=== PATIENT | male | born 1950 | race Hispanic/Latino ===

== ENCOUNTER 2022-01-01 09:53 | Emergency (ER) | payer OTHER ==
--- OUTSIDE RECORDS SUMMARY | 2022-01-01 10:00 | XMS REPORT | Continuity of Care Document ---
:[address] [facility] t Address [address] [place] [address] Care Team Providers Name Role Phone Sanchez Price Primary Care Physician FREDDIE PATEL Attending Clinician Unavailable Milagros Patel MD Attending Clinician Doctor Unassigned, Name Attending Clinician Unavailable Only, Test Attending Clinician Unavailable Pob, Lab Main Attending Clinician Unavailable Milagros PATEL Admitting Clinician Unavailable Milagros Patel MD Admitting Clinician Payers Payer Name Policy Type Policy Number Effective Date Expiration Date Milagros sargent Fylet [id number] 2020spring 00:00:00 [facility] [id number] 2018 COMPLETE 00:00:00 Problems This patient has no known problems. Allergies, Adverse Reactions, Alerts Allergy Allergy Status Severity Reaction(s) Onset Inactive Treating Comm ents Source Name Type Date Date Clinician PENICILL Drug Active Rash 2015-09 Univers INS Class 0-19 ity of 00:00: [place] [id number] Medical Branch Penicill Propensi Active Rash 2015-09 Univer s ins ty to 0-19 ity of adverse 00:00: [place] reaction Medical s Branch Social History Social Habit Start Date Stop Date Quantity Comments Source Exposure to Not sure University SARS-CoV-2 [facility] [place] [facility] (event) Branch Alcohol intake 2021-06-17 2021-06-17 0 /d University of 00:00:00 00:00:00 [facility] Tobacco Comment 2020-10-15 2020-10-15 half pack per Univer sity of 00:00:00 00:00:00 day [facility] Tobacco use and 2016-07-13 2016-07-13 Never used Universit y of exposure 00:00:00 00:00:00 [facility] Sex Assigned At [birth year] Universit y of 00:00:00 00:00:00 [facility] Smoking Status Start Date Stop Date Source Current every day smoker 2016-07-13 00:00:00 Uni versity of [facility] Medications Ordered Filled Start Stop Current Ordering Indication Dosage Frequency Signature Comments Components Source Medication Medication Date Date Medication? Clinician (SIG) Name Name triamcinolo 2020- No PRN, Unive rs ne 06-21 Starting ity of acetonide 16:10: 17:33 on Mon [place] (KENALOG) 00 :29 06/21/21 at [facility] injection 1110, Branch Until 06/21/21 at 1233, Routine, Intra-op lidocaine 2020- No PRN, Univers 1% 06-21 Starting ity of (XYLOCAINE) 16:10: 17:33 on Mon [place] 10 mg/mL (1 00 :29 06/21/21 at [facility] %) 1110, Branch injection Until 06/21/21 at 1233, Routine, Intra-op iohexoL 2020- No PRN, Univers (OMNIPAQUE 06-21 Starting ity of 300-50 mL)) 16:10: 17:33 on Mon [place] injection 00 :29 06/21/21 at [facility] 1110, Branch Until Mon06/21/21 at 1233, Routine, Intra-op bupivacaine 2020- No PRN, Unive rs (preserv 06-21 Starting ity of free) 16:10: 17:33 on Mon (SENSORCAIN 00 :29 06/21/21 at [facility] E MP[facility]) 0.25 1110, Branch % (2.5 Until Mon mg/mL) 06/21/21 at injection 1233, Routine, Intra-op lactated 2020- No 1000mL at 42 Unive rs ringers IV 06-21 mL/hr, ity of infusion 12:15: 12:12 1,000 mL, [place] 1,000 mL 00 :00 IV Medical Infusion, Branch ONCE, 1 dose, On Mon06/21/21 at 0715, Routine, DSU Pre-op lactated 2021-0 2021- No 1000mL at 42 Unive rs ringers IV 06-21 09-27 mL/hr, ity of infusion 12:15: 12:12 1,000 mL, [place] 1,000 mL 00 :00 IV Medical Infusion, Branch ONCE, 1 dose, On Mon06/21/21 at 0715, Routine, DSU Pre-op dapaglifloz 2021-0 Yes 10mg Take 10 mg Univers in 06-21 by mouth ity of (FARXIGA) 10:33: daily. [place] 10 mg 29 Medical tablet Branch dapaglifloz 1-0 Yes 10mg Take 10 mg Univers in 06-21 by mouth ity of (FARXIGA) 10:33: daily. [place] 10 mg 29 Medical tablet Branch dapaglifloz 1-0 Yes 10mg Take 10 mg Univers in 06-21 by mouth ity of (FARXIGA) 10:33: daily. [place] 10 mg 29 Medical tablet Branch lactated 2020-0 Yes 1000mL at 125 Unive rs ringers IV 9-13 mL/hr, ity of infusion 15:15: 1,000 mL, [place] 1[place]000 mL 00 IV Medical Infusion, Branch CONTINUOUS , Starting on Mon06/07/21 at 1015, Until Discontinu ed, Routine, Procedure Scheduling Request lactated 2020-0 Yes 1000mL at 125 Unive rs ringers IV 9-13 mL/hr, ity of infusion 15:15: 1,000 mL, [place] 1[place]000 mL 00 IV Medical Infusion, Branch CONTINUOUS , Starting on Mon06/07/21 at 1015, Until Discontinu ed, Routine, Procedure Scheduling Request lactated 1-0 1- No 1000mL at 125 Univ ers ringers IV 9-13 09-13 mL/hr, ity of infusion 15:15: 16:56 1,000 mL, [place] 1,000 mL 00 :28 IV Medical Infusion, Branch CONTINUOUS , Starting on Mon06/07/21 at 1015, Until Mon06/07/21 at 1156, Routine, Procedure Scheduling Request lactated 2021-0 2021- No 1000mL at 125 Univ ers ringers IV 06-07 09-13 mL/hr, ity of infusion 15:15: 16:56 1,000 mL, [place] 1,000 mL 00 :28 IV Medical Infusion, Branch CONTINUOUS , Starting on Mon06/07/21 at 1015, Until Mon06/07/21 at 1156, Routine, Procedure Scheduling Request triamcinolo 0 Yes PRN, Univer s ne 06-07 Starting ity of acetonide 13:53: on Mon (KENALOG) 06/07/21 at [facility] injection 0853, Branch Until Discontinu ed, Routine, Intra-op lidocaine 2020-0 Yes PRN, Univers 1% 06-07 Starting ity of (XYLOCAINE) 13:53: on [place] 10 mg/mL (06/07/21 at [facility] %) 0853, Branch injection Until Discontinu ed, Routine, Intra-op iohexoL 2020-0 Yes PRN, Univers (OMNIPAQUE 06-07 Starting ity o f 300-50 mL)) 13:53: on [place] injection 06/07/21 at [facility] 0853, Branch Until Discontinu ed, Routine, Intra-op bupivacaine 0 Yes PRN, Univer s (preserv 06-07 Starting ity of free) 13:53: on Mon [place] (SENSORCAIN 06/07/21 at [facility] E MPF) 0.25 0853, Branch % (2.5 Until mg/mL) Discontinu injection ed, Routine, Intra-op triamcinolo 0 Yes PRN, Univer s ne 06-07 Starting ity of acetonide 13:53: on Mon [place] (KENALOG) 06/07/21 at [facility] injection 0853, Branch Until Discontinu ed, Routine, Intra-op lidocaine 2020-0 Yes PRN, Univers 1% 06-07 Starting ity of (XYLOCAINE) 13:53: on [place] 10 mg/mL (06/07/21 at [facility] %) 0853, Branch injection Until Discontinu ed, Routine, Intra-op iohexoL 2020-0 Yes PRN, Univers (OMNIPAQUE 06-07 Starting ity o f 300-50 mL)) 13:53: on [place] 00 06/07/21 at [facility] 0853, Branch Until Discontinu ed, Routine, Intra-op bupivacaine Yes PRN, Univer s (preserv 06-07 Starting ity of free) 13:53: on [facility] (SENSORCAIN 00 06/07/21 at Va dical E MPF) 0.25 0853, Branch % (2.5 Until mg/mL) Discontinu injection ed, Routine, Intra-op triamcinolo 2020- No PRN, Unive rs ne 06-07 Starting ity of acetonide 13:53: 16:56 on [facility] (KENALOG) 00 :28 06/07/21 at [facility] injection 53, Branch Until Mon06/07/21 at 1156, Routine, Intra-op lidocaine 2020- No PRN, Univers 1% 06-07 Starting ity of (XYLOCAINE) 13:53: 16:[address] [facility] as 10 mg/mL (1 00 :28 06/07/21 at Va dical %) 0853, Branch injection Until Mon06/07/21 at 1156, Routine, Intra-op iohexoL 2020- No PRN, Univers (OMNIPAQUE 06-07 Starting ity of 300-50 mL)) 13:53: 16:56 on [facility] [place] injection 00 :28 06/07/21 at [facility] 08, Branch Until Mon06/07/21 at 1156, Routine, Intra-op bupivacaine 2020- No PRN, Unive rs (preserv 06-07 Starting ity of free) 13:53: 16:56 on [facility] (SENSORCAIN 00 :28 06/07/21 at Va dical E MPF) 0.25 0853, Branch % (2.5 Until Mon mg/mL) 06/07/21 at injection 1156, Routine, Intra-op triamcinolo 2020- No PRN, Unive rs ne 06-07 Starting ity of acetonide 13:53: 16:56 on [facility] (KENALOG) 00 :28 06/07/21 at [facility] injection 0853, Branch Until 06/07/21 at 1156, Routine, Intra-op lidocaine 2020-0 2020- No PRN, Univers 1% 06-07 Starting ity of (XYLOCAINE) 13:53: 16:56 on Mon [place] 10 mg/mL (1 00 :28 06/07/21 at Va dical %) 0853, Branch injection Until 06/07/21 at 1156, Routine, Intra-op iohexoL 2020- No PRN, Univers (OMNIPAQUE 06-07 Starting ity of 300-50 mL)) 13:53: 16:56 on Mon [place] injection 00 :28 06/07/21 at [facility] 0853, Branch Until Mon06/07/21 at 1156, Routine, Intra-op bupivacaine 2020-2020- No PRN, Unive rs (preserv 06-07 Starting ity of free) 13:53: 16:56 on Mon [place] (SENSORCAIN 00 :28 06/07/21 at [facility] E MPF) 0.25 53, Branch % (2.5 Until Mon mg/mL) 06/07/21 at injection 1156, Routine, Intra-op dapaglifloz 2020-0 Yes 10mg Take 10 mg Univers in - by mouth ity of (FARXIGA) 09:56: daily. [place] 10 mg 27 Medical tablet Branch dapaglifloz 2020-0 Yes 10mg Take 10 mg Univers in 06-07 by mouth ity of (FARXIGA) 09:56: daily. [place] 10 mg 27 Medical tablet Branch dapaglifloz 1-0 Yes 10mg Take 10 mg Univers in -13 by mouth ity of (FARXIGA) 09:56: daily. [place] 10 mg 27 Medical tablet Branch dapaglifloz 1-0 Yes 10mg Take 10 mg Univers in -13 by mouth ity of (FARXIGA) 09:56: daily. [place] 10 mg 27 Medical tablet Branch dapaglifloz 2021-0 Yes 10mg Take 10 mg Univers in 9-13 by mouth ity of (FARXIGA) 09:56: daily. [place] 10 mg 27 Medical tablet Branch dapaglifloz 2021-0 Yes 10mg Take 10 mg Univers in -13 by mouth ity of (FARXIGA) 09:56: daily. [place] 10 mg 27 Medical tablet Branch dapaglifloz 2020-0 Yes 10mg Take 10 mg Univers in 9-13 by mouth ity of (FARXIGA) 09:56: daily. [place] 10 mg 27 Medical tablet Branch dapaglifloz 2020-0 Yes 10mg Take 10 mg Univers in 9-13 by mouth ity of (FARXIGA) 09:56: daily. [place] 10 mg 27 Medical tablet Branch dapaglifloz 2020-0 Yes 10mg Take 10 mg Univers in 9-13 by mouth ity of (FARXIGA) 09:56: daily. [place] 10 mg 27 Medical tablet Branch dapaglifloz 2020-0 Yes 10mg Take 10 mg Univers in 9-13 by mouth ity of (FARXIGA) 09:56: daily. [place] 10 mg 27 Medical tablet Branch bupivacaine 2020-0 2020- No PRN, Unive rs (preserv 8 08-30 Starting ity of free) 15:05: 16:14 Mon [place] (SENSORCAIN 00 :20 05/24/21 at [facility] E MP[facility]) 0.25 1005, Branch % (2.5 Until Mon mg/mL) 05/24/21 at injection 1114, Routine, Intra-op bupivacaine 2020-0 2020- No PRN, Unive rs (preserv 8-30 08-30 Starting ity of free) 15:05: 16:14 Mon [place] (SENSORCAIN 00 :20 05/24/21 at [facility]ical E MPF) 0.25 1005, Branch % (2.5 Until Mon mg/mL) 05/24/21 at injection 1114, Routine, Intra-op dapaglifloz 2020-0 Yes 10mg Take 10 mg Univers in 8-30 by mouth ity of (FARXIGA) 14:09: daily. [place] 10 mg 16 Medical tablet Branch dapaglifloz 1-0 Yes 10mg Take 10 mg Univers in 8-30 by mouth ity of (FARXIGA) 14:09: daily. [place] 10 mg 16 Medical tablet Branch dapaglifloz 2020-0 Yes 10mg Take 10 mg Univers in 8-30 by mouth ity of (FARXIGA) 14:09: daily. [place] 10 mg 16 Medical tablet Branch dapaglifloz 2021-0 Yes 10mg Take 10 mg Univers in 8-30 by mouth ity of (FARXIGA) 14:09: daily. [place] 10 mg 16 Medical tablet Branch dapaglifloz 2021-0 Yes 10mg Take 10 mg Univers in 8-30 by mouth ity of (FARXIGA) 14:09: daily. [place] 10 mg 16 Medical tablet Branch dapaglifloz 2021-0 Yes 10mg Take 10 mg Univers in 8-30 by mouth ity of (FARXIGA) 14:09: daily. [place] 10 mg 16 Medical tablet Branch dapaglifloz 1-0 Yes 10mg Take 10 mg Univers in 8-30 by mouth ity of (FARXIGA) 14:09: daily. [place] 10 mg 16 Medical tablet Branch dapaglifloz 2021-0 Yes 10mg Take 10 mg Univers in 8-30 by mouth ity of (FARXIGA) 14:09: daily. [place] 10 mg 16 Medical tablet Branch dapaglifloz 2021-0 Yes 10mg Take 10 mg Univers in 8-30 by mouth ity of (FARXIGA) 14:09: daily. [place] 10 mg 16 Medical tablet Branch dapaglifloz 1-0 Yes 10mg Take 10 mg Univers in 8-30 by mouth ity of (FARXIGA) 14:09: daily. [place] 10 mg 16 Medical tablet Branch iohexoL 2020-2020- No PRN, Univers (OMNIPAQUE 8-30 08-30 Starting ity of 300-50 mL)) 13:00: 16:14 Mon [place] injection 00 :20 05/24/21 at [facility] 0800, Branch Until 05/24/21 at 1114, Routine, Intra-op iohexoL 2020- No PRN, Univers (OMNIPAQUE 8-30 08-30 Starting ity of 300-50 mL)) 13:00: 16:14 Mon [place] injection 00 :20 05/24/21 at [facility] 0800, Branch Until 05/24/21 at 1114, Routine, Intra-op triamcinolo 2020- No PRN, Unive rs ne 8-30 08-30 Starting ity of acetonide 12:49: 16:14 [facility] [place] (KENALOG) 00 :20 05/24/21 at [facility] injection 0749, Branch Until 8/30/21 at 1114, Routine, Intra-op triamcinolo 2020- No PRN, Unive rs ne 05-2430 Starting ity of acetonide 12:49: 16:14 Mon [place] (KENALOG) 00 :20 05/24/21 at [facility] injection 0749, Branch Until 05/24/21 at 1114, Routine, Intra-op lactated 2020- No 1000mL at 42 Unive rs ringers IV 8-30 08-30 mL/hr, ity of infusion 12:45: 12:41 1,000 mL, [place] 1,000 mL 00 :00 IV Medical Infusion, Branch ONCE, 1 dose, Mon05/24/21 at 0745, Routine, DSU Pre-op lactated 2020- No [facility] 08-30 mL/hr, ity of infusion 12:45: 12:41 1,000 mL, [place] 1,000 mL 00 :00 IV Medical Infusion, Branch ONCE, 1 dose, 05/24/21 at 0745, Routine, DSU Pre-op lactated 2020- No 1000mL at 42 Unive rs ringers IV 8-30 08-30 mL/hr, ity of infusion 12:45: 12:41 1,000 mL, [place] 1,000 mL 00 :00 IV Medical Infusion, Branch ONCE, 1 dose, Mon05/24/21 at 0745, Routine, DSU Pre-op lactated 2020- No 1000mL at 42 Unive rs ringers IV 8-30 08-30 mL/hr, ity of infusion 12:45: 12:41 1,000 mL, [place] 1,000 mL 00 :00 IV Medical Infusion, Branch ONCE, 1 dose, Mon05/24/21 at 0745, Routine, DSU Pre-op dapaglifloz Yes 10mg Take 10 mg Univers in 10-15 by mouth ity of (FARXIGA) 17:36: daily. [place] 10 mg 44 Medical tablet [place] dapaglifloz Yes 10mg Take 10 mg Univers in 10-15 by mouth ity of (FARXIGA) 17:36: daily. [place] 10 mg 44 Medical tablet Branch dapaglifloz 2020-0 Yes 10mg Take 10 mg Univers in 10-15 by mouth ity of (FARXIGA) 17:36: daily. [place] 10 mg 44 Medical tablet Branch dapaglifloz 2020-0 Yes 10mg Take 10 mg Univers in - by mouth ity of (FARXIGA) 17:36: daily. [place] 10 mg 44 Medical tablet Branch diclofenac 2017-0 Yes 75mg Take 1 Unive rs 75 mg EC 6-28 tablet by ity of tablet 00:00: mouth (two) Medical times Branch daily with meals. diclofenac 2017-0 Yes 75mg Take 1 Unive rs 75 mg EC 6-28 tablet by ity of tablet 00:00: mouth (two) Medical times Branch daily with meals. diclofenac 2017-0 Yes 75mg Take 1 Unive rs 75 mg EC 6-28 tablet by ity of tablet 00:00: mouth (two) Medical times Branch daily with meals. diclofenac 2017-0 Yes 75mg Take 1 Unive rs 75 mg EC 6-28 tablet by ity of tablet 00:00: mouth (two) Medical times Branch daily with meals. diclofenac 2017-0 Yes 75mg Take 1 Unive rs 75 mg EC 6-28 tablet by ity of tablet 00:00: mouth (two) Medical times Branch daily with meals. diclofenac 2017-0 Yes 75mg Take 1 Unive rs 75 mg EC 6-28 tablet by ity of tablet 00:00: mouth (two) Medical times Branch daily with meals. diclofenac 2017-0 Yes 75mg Take 1 Unive rs 75 mg EC 6-28 tablet by ity of tablet 00:00: mouth (two) Medical times Branch daily with meals. diclofenac 2017-0 Yes 75mg Take 1 Unive rs 75 mg EC 6-28 tablet by ity of tablet 00:00: mouth (two) Medical times Branch daily with meals. diclofenac 2017-0 Yes 75mg Take 1 Unive rs 75 mg EC 6-28 tablet by ity of tablet 00:00: mouth 2 (two) Medical times Branch daily with meals. diclofenac 2017-0 Yes 75mg Take 1 Unive rs 75 mg EC 6-28 tablet by ity of tablet 00:00: mouth 2 (two) Medical times Branch daily with meals. diclofenac 2017-0 Yes 75mg Take 1 Unive rs 75 mg EC 6-28 tablet by ity of tablet 00:00: mouth (two) Medical times Branch daily with meals. diclofenac 2017-0 Yes 75mg Take 1 Unive rs 75 mg EC 6-28 tablet by ity of tablet 00:00: mouth (two) Medical times Branch daily with meals. diclofenac 2017-0 Yes 75mg Take 1 Unive rs 75 mg EC 6-28 tablet by ity of tablet 00:00: mouth (two) Medical times Branch daily with meals. diclofenac 2017-0 Yes 75mg Take 1 Unive rs 75 mg EC 6-28 tablet by ity of tablet 00:00: mouth (two) Medical times Branch daily with meals. diclofenac 2017-0 Yes 75mg Take 1 Unive rs 75 mg EC 6-28 tablet by ity of tablet 00:00: mouth (two) Medical times Branch daily with meals. diclofenac 2017-0 Yes 75mg Take 1 Unive rs 75 mg EC 6-28 tablet by ity of tablet 00:00: mouth (two) Medical times Branch daily with meals. diclofenac 2017-0 Yes 75mg Take 1 Unive rs 75 mg EC 6-28 tablet by ity of tablet 00:00: mouth (two) Medical times Branch daily with meals. diclofenac 2017-0 Yes 75mg Take 1 Unive rs 75 mg EC 6-28 tablet by ity of tablet 00:00: mouth (two) Medical times Branch daily with meals. diclofenac 2017-0 Yes 75mg Take 1 Unive rs 75 mg EC 6-28 tablet by ity of tablet 00:00: mouth (two) Medical times Branch daily with meals. diclofenac 2017-0 Yes 75mg Take 1 Unive rs 75 mg EC 6-28 tablet by ity of tablet 00:00: mouth (two) Medical times Branch daily with meals. diclofenac 2017-0 Yes 75mg Take 1 Unive rs 75 mg EC 6-28 tablet by ity of tablet 00:00: mouth (two) Medical times Branch daily with meals. diclofenac 2017-0 Yes 75mg Take 1 Unive rs 75 mg EC 6-28 tablet by ity of tablet 00:00: mouth (two) Medical times Branch daily with meals. diclofenac 2017-0 Yes 75mg Take 1 Unive rs 75 mg EC 6-28 tablet by ity of tablet 00:00: mouth 2 (two) Medical times Branch daily with meals. diclofenac 2017-0 Yes 75mg Take 1 Unive rs 75 mg EC 6-28 tablet by ity of tablet 00:00: mouth 2 (two) Medical times Branch daily with meals. diclofenac 2017-0 Yes 75mg Take 1 Unive rs 75 mg EC 6-28 tablet by ity of tablet 00:00: mouth 2 (two) Medical times Branch daily with meals. diclofenac 2017-0 Yes 75mg Take 1 Unive rs 75 mg EC 6-28 tablet by ity of tablet 00:00: mouth 2 (two) Medical times Branch daily with meals. diclofenac 2017-0 Yes 75mg Take 1 Unive rs 75 mg EC 6-28 tablet by ity of tablet 00:00: mouth (two) Medical times Branch daily with meals. diclofenac 2017-0 Yes 75mg Take 1 Unive rs 75 mg EC 6-28 tablet by ity of tablet 00:00: mouth (two) Medical times Branch daily with meals. EPINEPHrine 2017-0 Yes Univer s 0.3 mg/0.3 6-01 ity of mL 00:00: [place] injection Medical Branch EPINEPHrine 2017-0 Yes Univer s 0.3 mg/0.3 6-01 ity of mL 00:00: [place] injection Medical Branch EPINEPHrine 2017-0 Yes Univer s 0.3 mg/0.3 6-01 ity of mL 00:00: [place] injection Medical Branch EPINEPHrine 2017-0 Yes Univer s 0.3 mg/0.3 6-01 ity of mL 00:00: [place] injection Medical Branch EPINEPHrine 2017-0 Yes Univer s 0.3 mg/0.3 6-01 ity of mL 00:00: [place] injection Medical Branch EPINEPHrine 2017-0 Yes Univer s 0.3 mg/0.3 6-01 ity of mL 00:00: [place] injection Medical Branch EPINEPHrine 2017-0 Yes Univer s 0.3 mg/0.3 6-01 ity of mL 00:00: [place] injection Medical Branch EPINEPHrine 2017-0 Yes Univer s 0.3 mg/0.3 6-01 ity of mL 00:00: [place] injection Medical Branch EPINEPHrine 2017-0 Yes Univer s 0.3 mg/0.3 6-01 ity of mL 00:00: [place] injection Medical Branch EPINEPHrine 2017-0 Yes Univer s 0.3 mg/0.3 6-01 ity of mL 00:00: [place] injection Medical Branch EPINEPHrine 2017-0 Yes Univer s 0.3 mg/0.3 6-01 ity of mL 00:00: [place] injection Medical Branch EPINEPHrine 2017-0 Yes Univer s 0.3 mg/0.3 6-01 ity of mL 00:00: [place] injection Medical Branch EPINEPHrine 2017-0 Yes Univer s 0.3 mg/0.3 6-01 ity of mL 00:00: [place] injection Medical Branch EPINEPHrine 2016-0 Yes Univer s 0.3 mg/0.3 6-01 ity of mL 00:00: [place] injection Medical Branch EPINEPHrine 2017-0 Yes Univer s 0.3 mg/0.3 6-01 ity of mL 00:00: [place] injection Medical Branch EPINEPHrine 2017-0 Yes Univer s 0.3 mg/0.3 6-01 ity of mL 00:00: [place] injection Medical Branch EPINEPHrine 2017-0 Yes Univer s 0.3 mg/0.3 6-01 ity of mL 00:00: [place] injection Medical Branch EPINEPHrine 2017-0 Yes Univer s 0.3 mg/0.3 6-01 ity of mL 00:00: [place] injection Medical Branch EPINEPHrine 2017-0 Yes Univer s 0.3 mg/0.3 6-01 ity of mL 00:00: [place] injection Medical Branch EPINEPHrine 2017-0 Yes Univer s 0.3 mg/0.3 6-01 ity of mL 00:00: [place] injection Medical Branch EPINEPHrine 2017-0 Yes Univer s 0.3 mg/0.3 6-01 ity of mL 00:00: [place] injection Medical Branch EPINEPHrine 2017-0 Yes Univer s 0.3 mg/0.3 6-01 ity of mL 00:00: [place] injection Medical Branch EPINEPHrine 2017-0 Yes Univer s 0.3 mg/0.3 6-01 ity of mL 00:00: [place] injection 00 Medical Branch EPINEPHrine 2017-0 Yes Univer s 0.3 mg/0.3 6-01 ity of mL 00:00: [place] injection Medical Branch EPINEPHrine 2017-0 Yes Univer s 0.3 mg/0.3 6-01 ity of mL 00:00: [place] injection Medical Branch EPINEPHrine 2017-0 Yes Univer s 0.3 mg/0.3 6-01 ity of mL 00:00: [place] injection Medical Branch EPINEPHrine 2017-0 Yes Univer s 0.3 mg/0.3 6-01 ity of mL 00:00: [place] injection Medical Branch EPINEPHrine 2017-0 Yes Univer s 0.3 mg/0.3 6-01 ity of mL 00:00: [place] injection Medical Branch gabapentin 2017-0 Yes Univers 300 mg 5-31 ity of capsule 00:00: [place] [facility] gabapentin 2017-0 Yes Univers 300 mg 5-31 ity of capsule 00:00: [place] [facility] gabapentin 2017-0 Yes Univers 300 mg 5-31 ity of capsule 00:00: [place] [facility] gabapentin 2017-0 Yes Univers 300 mg 5-31 ity of capsule 00:00: [place] [facility] gabapentin 2017-0 Yes Univers 300 mg 5-31 ity of capsule 00:00: [place] [address] Medical Branch gabapentin 2017-0 Yes Univers 300 mg 5-31 ity of capsule 00:00: [place] [address] Medical Branch gabapentin 2017-0 Yes Univers 300 mg 5-31 ity of capsule 00:00: [place] [address] Medical Branch gabapentin 2017-0 Yes Univers 300 mg 5-31 ity of capsule 00:00: [place] [facility] gabapentin 2017-0 Yes Univers 300 mg 5-31 ity of capsule 00:00: [place] [address] Medical Branch gabapentin 2017-0 Yes Univers 300 mg 5-31 ity of capsule 00:00: [place] [address] Medical Branch gabapentin 2017-0 Yes Univers 300 mg 5-31 ity of capsule 00:00: [place] [facility] gabapentin 2017-0 Yes Univers 300 mg 5-31 ity of capsule 00:00: [place] [address] Medical Branch gabapentin 2017-0 Yes Univers 300 mg 5-31 ity of capsule 00:00: [place] [address] Medical Branch gabapentin 2017-0 Yes Univers 300 mg 5-31 ity of capsule 00:00: [place] [facility] gabapentin 2017-0 Yes Univers 300 mg 5-31 ity of capsule 00:00: [place] 00 Medical Branch gabapentin 2017-0 Yes Univers 300 mg 5-31 ity of capsule 00:00: [place] 00 Medical Branch gabapentin 2017-0 Yes Univers 300 mg 5-31 ity of capsule 00:00: [place] [address] Medical Branch gabapentin 2017-0 Yes Univers 300 mg 5-31 ity of capsule 00:00: [place] [address] Medical Branch gabapentin 2017-0 Yes Univers 300 mg 5-31 ity of capsule 00:00: [place] [address] Medical Branch gabapentin 2017-0 Yes Univers 300 mg 5-31 ity of capsule 00:00: [place] [address] Medical Branch gabapentin 2017-0 Yes Univers 300 mg 5-31 ity of capsule 00:00: [place] [address] Medical Branch gabapentin 2017-0 Yes Univers 300 mg 5-31 ity of capsule 00:00: [place] [address] Medical Branch gabapentin 2017-0 Yes Univers 300 mg 5-31 ity of capsule 00:00: [place] [address] Medical Branch gabapentin 2017-0 Yes Univers 300 mg 5-31 ity of capsule 00:00: [place] [address] Medical Branch gabapentin 2017-0 Yes Univers 300 mg 5-31 ity of capsule 00:00: [place] [address] Medical Branch gabapentin 2017-0 Yes Univers 300 mg 5-31 ity of capsule 00:00: [place] [address] Medical Branch gabapentin 2017-0 Yes Univers 300 mg 5-31 ity of capsule 00:00: [place] [address] Medical Branch gabapentin 2017-0 Yes Univers 300 mg 5-31 ity of capsule 00:00: [place] [address] Medical Branch pravastatin 2017-0 Yes Univer s 40 mg 5-08 ity of tablet 00:00: [place] [address] Medical Branch pravastatin 2017-0 Yes Univer s 40 mg 5-08 ity of tablet 00:00: [place] 00 Medical Branch pravastatin 2017-0 Yes Univer s 40 mg 5-08 ity of tablet 00:00: [place] [address] Medical Branch pravastatin 2017-0 Yes Univer s 40 mg 5-08 ity of tablet 00:00: [place] [address] Medical Branch pravastatin 2017-0 Yes Univer s 40 mg 5-08 ity of tablet 00:00: [place] [address] Medical Branch pravastatin 2017-0 Yes Univer s 40 mg 5-08 ity of tablet 00:00: [place] [address] Medical Branch pravastatin 2017-0 Yes Univer s 40 mg 5-08 ity of tablet 00:00: [place] [address] Medical Branch pravastatin 2017-0 Yes Univer s 40 mg 5-08 ity of tablet 00:00: [place] [address] Medical Branch pravastatin 2017-0 Yes Univer s 40 mg 5-08 ity of tablet 00:00: [address] Branch pravastatin 2017-0 Yes Univer s 40 mg 5-08 ity of tablet 00:00: [place] [address] Medical Branch pravastatin 2017-0 Yes Univer s 40 mg 5-08 ity of tablet 00:00: [address] Branch pravastatin 2017-0 Yes [facility] s 40 mg 5-08 ity of tablet 00:00: [address] Branch pravastatin 2017-0 Yes [facility] 40 mg 5-08 ity of tablet 00:00: [address] Branch pravastatin 2017-0 Yes [facility] 40 mg 5-08 ity of tablet 00:00: [address] Branch pravastatin 2017-0 Yes [facility] 40 mg 5-08 ity of tablet 00:00: [address] Branch pravastatin 2017-0 Yes [facility] 40 mg 5-08 ity of tablet 00:00: [address] Branch pravastatin 2017-0 Yes [facility] 40 mg 5-08 ity of tablet 00:00: [address] Branch pravastatin 2017-0 Yes [facility] 40 mg 5-08 ity of tablet 00:00: [address] pravastatin 2017-0 Yes [facility] 40 mg 5-08 ity of tablet 00:00: [address] Branch pravastatin 2017-0 Yes [facility] 40 mg 5-08 ity of tablet 00:00: [address] Branch pravastatin 2017-0 Yes [facility] 40 mg 5-08 ity of tablet 00:00: [address] [facility] pravastatin 2017-0 Yes [facility] 40 mg 5-08 ity of tablet 00:00: [address] [facility] pravastatin 2017-0 Yes [facility] 40 mg 5-08 ity of tablet 00:00: [address] pravastatin 2017-0 Yes [facility] 40 mg 5-08 ity of tablet 00:00: [address] [facility] pravastatin 2017-0 Yes Un[facility] 40 mg 5-08 ity of tablet 00:00: [place] [id number] [facility] pravastatin 2017-0 Yes Un[facility] s 40 mg 5-08 ity of tablet 00:00: [address] Branch pravastatin 2017-0 Yes [facility] 40 mg 5-08 ity of tablet 00:00: [place] [facility] pravastatin 2017-0 Yes [facility] 40 mg 5-08 ity of tablet 00:00: [place] 00 [facility] lisinopril 2015-09 Yes [facility] (PRINIVIL,Z 0-12 ity of ESTRIL) 5 00:00: [place] mg tablet 00 [facility] metFORMIN 2015-09 Yes [facility] (GLUCOPHAGE 0-12 ity of ) 500 mg 00:00: [place] tablet 00 [facility] nortriptyli 2015-09 Yes Univer s ne 0-12 ity of (PAMELOR) 00:00: [place] 10 mg 00 Medical capsule Branch lisinopril 2015-09 Yes [facility] (PRINIVIL,Z 0-12 ity of ESTRIL) 5 00:00: [place] mg tablet 00 [facility] metFORMIN 2015-09 Yes [facility] (GLUCOPHAGE 0-12 ity of ) 500 mg 00:00: [place] tablet 00 [facility] nortriptyli 2015-09 Yes Un[facility] s ne 0-12 ity of (PAMELOR) 00:00: [place] 10 mg 00 Medical capsule Branch lisinopril 2015-09 Yes [facility] (PRINIVIL,Z 0-12 ity of ESTRIL) 5 00:00: [place] mg tablet 00 [facility] lisinopril 2015-09 Yes [facility] (PRINIVIL,Z 0-12 ity of ESTRIL) 5 00:00: [place] mg tablet 00 [facility] metFORMIN 2015-09 Yes Univers (GLUCOPHAGE 0-12 ity of ) 500 mg 00:00: [place] tablet 00 [facility] nortriptyli 2015-09 Yes Un[facility] s ne 0-12 ity of (PAMELOR) 00:00: [place] 10 mg 00 Medical capsule Branch metFORMIN 2015-09 Yes [facility] (GLUCOPHAGE 0-12 ity of ) 500 mg 00:00: [place] tablet 00 [facility] nortriptyli 2015-09 Yes Un[facility] s ne 0-12 ity of (PAMELOR) 00:00: [place] 10 mg 00 Medical capsule Branch lisinopril 2015-09 Yes [facility] (PRINIVIL,Z 0-12 ity of ESTRIL) 5 00:00: [place] mg tablet 00 [facility] metFORMIN 2015-09 Yes Univers (GLUCOPHAGE 0-12 ity of ) 500 mg 00:00: [place] tablet 00 [facility] nortriptyli 2015-09 Yes Un[facility] s ne 0-12 ity of (PAMELOR) 00:00: [place] 10 mg 00 Medical capsule Branch lisinopril 2015-09 Yes [facility] (PRINIVIL,Z 0-12 ity of ESTRIL) 5 00:00: [place] mg tablet 00 [facility] metFORMIN 2015-09 Yes [facility] (GLUCOPHAGE 0-12 ity of ) 500 mg 00:00: [place] tablet 00 [facility] nortriptyli 2015-09 Yes Un[facility] s ne 0-12 ity of (PAMELOR) 00:00: [place] 10 mg 00 Medical capsule Branch lisinopril 2015-09 Yes [facility] (PRINIVIL,Z 0-12 ity of ESTRIL) 5 00:00: [place] mg tablet 00 [facility] metFORMIN 2015-09 Yes Univers (GLUCOPHAGE 0-12 ity of ) 500 mg 00:00: [place] tablet 00 [facility] nortriptyli 2015-09 Yes Un[facility] s ne 0-12 ity of (PAMELOR) 00:00: [place] 10 mg 00 Medical capsule Branch lisinopril 2015-09 Yes [facility] (PRINIVIL,Z 0-12 ity of ESTRIL) 5 00:00: [place] mg tablet 00 [facility] metFORMIN 2015-09 Yes [facility] (GLUCOPHAGE 0-12 ity of ) 500 mg 00:00: [place] tablet 00 [facility] nortriptyli 2015-09 Yes Un[facility] s ne 0-12 ity of (PAMELOR) 00:00: [place] 10 mg 00 Medical capsule Branch lisinopril 2015-09 Yes [facility] (PRINIVIL,Z 0-12 ity of ESTRIL) 5 00:00: [place] mg tablet 00 [facility] metFORMIN 2015-09 Yes [facility] (GLUCOPHAGE 0-12 ity of ) 500 mg 00:00: [place] tablet 00 [facility] nortriptyli 2015-09 Yes Un[facility] s ne 0-12 ity of (PAMELOR) 00:00: [place] 10 mg 00 Medical capsule Branch lisinopril 2015-09 Yes [facility] (PRINIVIL,Z 0-12 ity of ESTRIL) 5 00:00: [place] mg tablet 00 [facility] metFORMIN 2015-09 Yes Univers (GLUCOPHAGE 0-12 ity of ) 500 mg 00:00: [place] tablet 00 [facility] nortriptyli 2015-09 Yes Un[facility] s ne 0-12 ity of (PAMELOR) 00:00: [place] 10 mg 00 Medical capsule Branch lisinopril 2015-09 Yes [facility] (PRINIVIL,Z 0-12 ity of ESTRIL) 5 00:00: [place] mg tablet 00 [facility] metFORMIN 2015-09 Yes [facility] (GLUCOPHAGE 0-12 ity of ) 500 mg 00:00: [place] tablet 00 [facility] nortriptyli 2015-09 Yes [facility] ne 0-12 ity of (PAMELOR) 00:00: [place] 10 mg 00 Medical capsule Branch lisinopril 2015-09 Yes [facility] (PRINIVIL,Z 0-12 ity of ESTRIL) 5 00:00: [place] mg tablet 00 [facility] metFORMIN 2015-09 Yes Univers (GLUCOPHAGE 0-12 ity of ) 500 mg 00:00: [place] tablet 00 [facility] nortriptyli 2015-09 Yes Un[facility] s ne 0-12 ity of (PAMELOR) 00:00: [place] 10 mg 00 Medical capsule Branch lisinopril 2015-09 Yes [facility] (PRINIVIL,Z 0-12 ity of ESTRIL) 5 00:00: [place] mg tablet 00 [facility] metFORMIN 2015-09 Yes [facility] (GLUCOPHAGE 0-12 ity of ) 500 mg 00:00: [place] tablet 00 [facility] nortriptyli 2015-09 Yes [facility] ne 0-12 ity of (PAMELOR) 00:00: [place] 10 mg 00 Medical capsule Branch lisinopril 2015-09 Yes [facility] (PRINIVIL,Z 0-12 ity of ESTRIL) 5 00:00: [place] mg tablet 00 [facility] metFORMIN 2015-09 Yes [facility] (GLUCOPHAGE 0-12 ity of ) 500 mg 00:00: [place] tablet 00 [facility] nortriptyli 2015-09 Yes [facility] ne 0-12 ity of (PAMELOR) 00:00: [place] 10 mg 00 Medical capsule Branch lisinopril 2015-09 Yes [facility] (PRINIVIL,Z 0-12 ity of ESTRIL) 5 00:00: [place] mg tablet 00 [facility] metFORMIN 2015-09 Yes [facility] (GLUCOPHAGE 0-12 ity of ) 500 mg 00:00: [place] tablet 00 [facility] nortriptyli 2015-09 Yes [facility] ne 0-12 ity of (PAMELOR) 00:00: [place] 10 mg 00 Medical capsule Branch lisinopril 2015-09 Yes [facility] (PRINIVIL,Z 0-12 ity of ESTRIL) 5 00:00: [place] mg tablet 00 [facility] metFORMIN 2015-09 Yes [facility] (GLUCOPHAGE 0-12 ity of ) 500 mg 00:00: [place] tablet 00 [facility] nortriptyli 2015-09 Yes [facility] ne 0-12 ity of (PAMELOR) 00:00: [place] 10 mg 00 Medical capsule Branch lisinopril 2015-09 Yes [facility] (PRINIVIL,Z 0-12 ity of ESTRIL) 5 00:00: [place] mg tablet 00 [facility] metFORMIN 2015-09 Yes [facility] (GLUCOPHAGE 0-12 ity of ) 500 mg 00:00: [place] tablet 00 [facility] nortriptyli 2015-09 Yes [facility] ne 0-12 ity of (PAMELOR) 00:00: [place] 10 mg 00 Medical capsule Branch lisinopril 2015-09 Yes [facility] (PRINIVIL,Z 0-12 ity of ESTRIL) 5 00:00: [place] mg tablet 00 [facility] metFORMIN 2015-09 Yes [facility] (GLUCOPHAGE 0-12 ity of ) 500 mg 00:00: [place] tablet 00 [facility] nortriptyli 2015-09 Yes [facility] ne 0-12 ity of (PAMELOR) 00:00: [place] 10 mg 00 Medical capsule Branch lisinopril 2015-09 Yes [facility] (PRINIVIL,Z 0-12 ity of ESTRIL) 5 00:00: [place] mg tablet 00 [facility] metFORMIN 2015-09 Yes [facility] (GLUCOPHAGE 0-12 ity of ) 500 mg 00:00: [place] tablet 00 [facility] nortriptyli 2015-09 Yes Un[facility] ne 0-12 ity of (PAMELOR) 00:00: [place] 10 mg 00 Medical capsule Branch lisinopril 2015-09 Yes [facility] (PRINIVIL,Z 0-12 ity of ESTRIL) 5 00:00: [place] mg tablet 00 [facility] metFORMIN 2015-09 Yes [facility] (GLUCOPHAGE 0-12 ity of ) 500 mg 00:00: [place] tablet 00 [facility] nortriptyli 2015-09 Yes Un[facility] ne 0-12 ity of (PAMELOR) 00:00: [place] 10 mg 00 Medical capsule Branch lisinopril 2015-09 Yes [facility] (PRINIVIL,Z 0-12 ity of ESTRIL) 5 00:00: [place] mg tablet 00 [facility] lisinopril 2015-09 Yes [facility] (PRINIVIL,Z 0-12 ity of ESTRIL) 5 00:00: [place] mg tablet 00 [facility] metFORMIN 2015-09 Yes [facility] (GLUCOPHAGE 0-12 ity of ) 500 mg 00:00: [place] tablet 00 [facility] nortriptyli 2015-09 Yes [facility] ne 0-12 ity of (PAMELOR) 00:00: [place] 10 mg 00 Medical capsule Branch metFORMIN 2015-09 Yes [facility] (GLUCOPHAGE 0-12 ity of ) 500 mg 00:00: [place] tablet 00 [facility] lisinopril 2015-09 Yes [facility] (PRINIVIL,Z 0-12 ity of ESTRIL) 5 00:00: [place] mg tablet 00 [facility] metFORMIN 2015-09 Yes [facility] (GLUCOPHAGE 0-12 ity of ) 500 mg 00:00: [place] tablet 00 [facility] nortriptyli 2015-09 Yes Un[facility] s ne 0-12 ity of (PAMELOR) 00:00: [place] 10 mg 00 Medical capsule Branch nortriptyli 2015-09 Yes [facility] ne 0-12 ity of (PAMELOR) 00:00: [place] 10 mg 00 Medical capsule Branch lisinopril 2015-09 Yes [facility] (PRINIVIL,Z 0-12 ity of ESTRIL) 5 00:00: [place] mg tablet 00 [facility] Branch metFORMIN 2015-09 Yes [facility] (GLUCOPHAGE 0-12 ity of ) 500 mg 00:00: [place] tablet 00 [facility] nortriptyli 2015-09 Yes Un[facility] ne 0-12 ity of (PAMELOR) 00:00: [place] 10 mg 00 Medical capsule Branch lisinopril 2015-09 Yes [facility] (PRINIVIL,Z 0-12 ity of ESTRIL) 5 00:00: [place] mg tablet 00 [facility] metFORMIN 2015-09 Yes [facility] (GLUCOPHAGE 0-12 ity of ) 500 mg 00:00: [place] tablet 00 [facility] nortriptyli 2015-09 Yes [facility] ne 0-12 ity of (PAMELOR) 00:00: [place] 10 mg 00 Medical capsule Branch lisinopril 2015-09 Yes [facility] (PRINIVIL,Z 0-12 ity of ESTRIL) 5 00:00: [place] mg tablet 00 [facility] metFORMIN 2015-09 Yes [facility] (GLUCOPHAGE 0-12 ity of ) 500 mg 00:00: [place] tablet 00 [facility] nortriptyli 2015-09 Yes [facility] s ne 0-12 ity of (PAMELOR) 00:00: [place] 10 mg 00 Medical capsule Branch lisinopril 2015-09 Yes [facility] (PRINIVIL,Z 0-12 ity of ESTRIL) 5 00:00: [place] mg tablet 00 Medical [facility] metFORMIN 2015-09 Yes [facility] (GLUCOPHAGE 0-12 ity of ) 500 mg 00:00: [place] tablet 00 [facility] nortriptyli 2015-09 Yes [facility] s ne 0-12 ity of (PAMELOR) 00:00: [place] 10 mg 00 Medical capsule Branch lisinopril 2015-09 Yes [facility] (PRINIVIL,Z 0-12 ity of ESTRIL) 5 00:00: [place] mg tablet 00 Medical Branch metFORMIN 2015-09 Yes [facility] (GLUCOPHAGE 0-12 ity of ) 500 mg 00:00: [place] tablet 00 Medical Branch nortriptyli 2015-09 Yes [facility] s ne 0-12 ity of (PAMELOR) 00:00: [place] 10 mg 00 Medical capsule Branch HYDROcodone 20160 Yes Univer s -acetaminop 9-23 ity of hen (NORCO) 00:00: [place] 10-325 mg 00 Medical tablet Branch LEVEMIR 2016-0 Yes [facility] FLEXTOUCH 9-23 ity of 100 unit/mL 00:00: [place] (3 mL) 00 Medical injection Branch HYDROcodone 2016-0 Yes Un[facility] s -acetaminop 9-23 ity of hen (NORCO) 00:00: [place] 10-325 mg 00 Medical tablet Branch HYDROcodone 2016-0 Yes Un[facility] s -acetaminop 9-23 ity of hen (NORCO) 00:00: [place] 10-325 mg 00 Medical tablet Branch LEVEMIR 2016-0 Yes [facility] FLEXTOUCH 9-23 ity of 100 unit/mL 00:00: [place] (3 mL) 00 Medical injection Branch LEVEMIR 2016-0 Yes [facility] FLEXTOUCH 9-23 ity of 100 unit/mL 00:00: [place] (3 mL) 00 Medical injection Branch HYDROcodone 2016-0 Yes Un[facility] s -acetaminop 9-23 ity of hen (NORCO) 00:00: [place] 10-325 mg 00 Medical tablet Branch LEVEMIR 2016-0 Yes [facility] FLEXTOUCH 9-23 ity of 100 unit/mL 00:00: [place] (3 mL) 00 Medical injection Branch HYDROcodone 2016-0 Yes Un[facility] s -acetaminop 9-23 ity of hen (NORCO) 00:00: [place] 10-325 mg 00 Medical tablet Branch LEVEMIR 2016-0 Yes [facility] FLEXTOUCH 9-23 ity of 100 unit/mL 00:00: [place] (3 mL) 00 Medical injection Branch HYDROcodone 2016-0 Yes Un[facility] s -acetaminop 9-23 ity of hen (NORCO) 00:00: [place] 10-325 mg 00 Medical tablet Branch LEVEMIR 2016-0 Yes [facility] FLEXTOUCH 9-23 ity of 100 unit/mL 00:00: [place] (3 mL) 00 Medical injection Branch HYDROcodone 2016-0 Yes Un[facility] s -acetaminop 9-23 ity of hen (NORCO) 00:00: [place] 10-325 mg 00 Medical tablet Branch LEVEMIR 2016-0 Yes [facility] FLEXTOUCH 9-23 ity of 100 unit/mL 00:00: [place] (3 mL) 00 Medical injection Branch HYDROcodone 2016-0 Yes Un[facility] s -acetaminop 9-23 ity of hen (NORCO) 00:00: [place] 10-325 mg 00 Medical tablet Branch LEVEMIR 2016-0 Yes [facility] FLEXTOUCH 9-23 ity of 100 unit/mL 00:00: [place] (3 mL) 00 Medical injection Branch HYDROcodone 2016-0 Yes Un[facility] s -acetaminop 9-23 ity of hen (NORCO) 00:00: [place] 10-325 mg 00 Medical tablet Branch LEVEMIR 2016-0 Yes [facility] FLEXTOUCH 9-23 ity of 100 unit/mL 00:00: [place] (3 mL) 00 Medical injection Branch HYDROcodone 2016-0 Yes Un[facility] s -acetaminop 9-23 ity of hen (NORCO) 00:00: [place] 10-325 mg 00 Medical tablet Branch LEVEMIR 2016-0 Yes [facility] FLEXTOUCH 9-23 ity of 100 unit/mL 00:00: [place] (3 mL) 00 Medical injection Branch HYDROcodone 2016-0 Yes [facility] s -acetaminop 9-23 ity of hen (NORCO) 00:00: [place] 10-325 mg 00 Medical tablet Branch LEVEMIR 2016-0 Yes [facility] FLEXTOUCH 9-23 ity of 100 unit/mL 00:00: [place] (3 mL) 00 Medical injection Branch HYDROcodone 2016-0 Yes Un[facility] s -acetaminop 9-23 ity of hen (NORCO) 00:00: [place] 10-325 mg 00 Medical tablet Branch LEVEMIR 2016-0 Yes [facility] FLEXTOUCH 9-23 ity of 100 unit/mL 00:00: [place] (3 mL) 00 Medical injection Branch HYDROcodone 2016-0 Yes Un[facility] s -acetaminop 9-23 ity of hen (NORCO) 00:00: [place] 10-325 mg 00 Medical tablet Branch LEVEMIR 2016-0 Yes [facility] FLEXTOUCH 9-23 ity of 100 unit/mL 00:00: [place] (3 mL) 00 Medical injection Branch HYDROcodone 2016-0 Yes [facility] s -acetaminop 9-23 ity of hen (NORCO) 00:00: [place] 10-325 mg 00 Medical tablet Branch LEVEMIR 2016-0 Yes [facility] FLEXTOUCH 9-23 ity of 100 unit/mL 00:00: [place] (3 mL) 00 Medical injection Branch HYDROcodone 2016-0 Yes [facility] s -acetaminop 9-23 ity of hen (NORCO) 00:00: [place] 10-325 mg 00 Medical tablet Branch LEVEMIR 2016-0 Yes [facility] FLEXTOUCH 9-23 ity of 100 unit/mL 00:00: [place] (3 mL) 00 Medical injection Branch HYDROcodone 2016-0 Yes [facility] s -acetaminop 9-23 ity of hen (NORCO) 00:00: [place] 10-325 mg 00 Medical tablet Branch LEVEMIR 2016-0 Yes [facility] FLEXTOUCH 9-23 ity of 100 unit/mL 00:00: [place] (3 mL) 00 Medical injection Branch HYDROcodone 2016-0 Yes Un[facility] s -acetaminop 9-23 ity of hen (NORCO) 00:00: [place] 10-325 mg 00 Medical tablet Branch LEVEMIR 2016-0 Yes [facility] FLEXTOUCH 9-23 ity of 100 unit/mL 00:00: [place] (3 mL) 00 Medical injection Branch HYDROcodone 2016-0 Yes Un[facility] s -acetaminop 9-23 ity of hen (NORCO) 00:00: [place] 10-325 mg 00 Medical tablet Branch LEVEMIR 2016-0 Yes [facility] FLEXTOUCH 9-23 ity of 100 unit/mL 00:00: [place] (3 mL) 00 Medical injection Branch HYDROcodone 2016-0 Yes Un[facility] s -acetaminop 9-23 ity of hen (NORCO) 00:00: [place] 10-325 mg 00 Medical tablet Branch LEVEMIR 2016-0 Yes [facility] FLEXTOUCH 9-23 ity of 100 unit/mL 00:00: [place] (3 mL) 00 Medical injection Branch HYDROcodone 2016-0 Yes Un[facility] s -acetaminop 9-23 ity of hen (NORCO) 00:00: [place] 10-325 mg 00 Medical tablet Branch HYDROcodone 2016-0 Yes Un[facility] s -acetaminop 9-23 ity of hen (NORCO) 00:00: [place] 10-325 mg 00 Medical tablet Branch LEVEMIR 2016-0 Yes [facility] FLEXTOUCH 9-23 ity of 100 unit/mL 00:00: [place] (3 mL) 00 Medical injection Branch LEVEMIR 2016-0 Yes [facility] FLEXTOUCH 9-23 ity of 100 unit/mL 00:00: [place] (3 mL) 00 Medical injection Branch HYDROcodone 2016-0 Yes Un[facility] s -acetaminop 9-23 ity of hen (NORCO) 00:00: [place] 10-325 mg 00 Medical tablet Branch LEVEMIR 2016-0 Yes [facility] FLEXTOUCH 9-23 ity of 100 unit/mL 00:00: [place] (3 mL) 00 Medical injection Branch HYDROcodone 2016-0 Yes Un[facility] s -acetaminop 9-23 ity of hen (NORCO) 00:00: [place] 10-325 mg 00 Medical tablet Branch LEVEMIR 2016-0 Yes [facility] FLEXTOUCH 9-23 ity of 100 unit/mL 00:00: [place] (3 mL) 00 Medical injection Branch HYDROcodone 2016-0 Yes Un[facility] s -acetaminop 9-23 ity of hen (NORCO) 00:00: [place] 10-325 mg 00 Medical tablet Branch LEVEMIR 2016-0 Yes [facility] FLEXTOUCH 9-23 ity of 100 unit/mL 00:00: [place] (3 mL) 00 Medical injection Branch HYDROcodone 2016-0 Yes Un[facility] s -acetaminop 9-23 ity of hen (NORCO) 00:00: [place] 10-325 mg 00 Medical tablet Branch LEVEMIR 2016-0 Yes [facility] FLEXTOUCH 9-23 ity of 100 unit/mL 00:00: [place] (3 mL) 00 Medical injection Branch HYDROcodone 2016-0 Yes Univer s -acetaminop 9-23 ity of hen (NORCO) 00:00: [place] 10-325 mg 00 Medical tablet Branch LEVEMIR 2016-0 Yes [facility] FLEXTOUCH 9-23 ity of 100 unit/mL 00:00: [place] (3 mL) 00 Medical injection Branch HYDROcodone 0 Yes Un[facility] s -acetaminop 9-23 ity of hen (NORCO) 00:00: [place] 10-325 mg 00 Medical tablet Branch LEVEMIR 0 Yes [facility] FLEXTOUCH 9-23 ity of 100 unit/mL 00:00: [place] (3 mL) 00 Medical injection Branch HYDROcodone 0 Yes [facility] s -acetaminop 9-23 ity of hen (NORCO) 00:00: [place] 10-325 mg 00 Medical tablet Branch LEVEMIR 0 Yes [facility] FLEXTOUCH 9-23 ity of 100 unit/mL 00:00: [place] (3 mL) 00 Medical injection Branch tramadol-ac 0 Yes Univer s etaminophen 9-15 ity of (ULTRACET) 00:00: [place] 37.5-325 mg 00 Medical per tablet Branch tramadol-ac 2016-0 Yes [facility] s etaminophen 9-15 ity of (ULTRACET) 00:00: [place] 37.5-325 mg 00 Medical per tablet Branch tramadol-ac 2016-0 Yes Un[facility] s etaminophen 9-15 ity of (ULTRACET) 00:00: [place] 37.5-325 mg 00 Medical per tablet Branch tramadol-ac 2016-0 Yes Univer s etaminophen 9-15 ity of (ULTRACET) 00:00: [place] 37.5-325 mg 00 Medical per tablet Branch tramadol-ac 2016-0 Yes Univer s etaminophen 9-15 ity of (ULTRACET) 00:00: [place] 37.5-325 mg 00 Medical per tablet Branch tramadol-ac 2016-0 Yes Un[facility] s etaminophen 9-15 ity of (ULTRACET) 00:00: [place] 37.5-325 mg 00 Medical per tablet Branch tramadol-ac 2015-0 Yes [facility] s etaminophen 9-15 ity of (ULTRACET) 00:00: [place] 37.5-325 mg 00 Medical per tablet Branch tramadol-ac 2015-0 Yes [facility] etaminophen 9-15 ity of (ULTRACET) 00:00: [place] 37.5-325 mg 00 Medical per tablet Branch tramadol-ac 0 Yes [facility] etaminophen 9-15 ity of (ULTRACET) 00:00: [place] 37.5-325 mg 00 Medical per tablet Branch tramadol-ac 0 Yes [facility] etaminophen 9-15 ity of (ULTRACET) 00:00: [place] 37.5-325 mg 00 Medical per tablet Branch tramadol-ac 0 Yes [facility] etaminophen 9-15 ity of (ULTRACET) 00:00: [place] 37.5-325 mg 00 Medical per tablet Branch tramadol-ac 0 Yes [facility] etaminophen 9-15 ity of (ULTRACET) 00:00: [place] 37.5-325 mg 00 Medical per tablet Branch tramadol-ac 0 Yes [facility] etaminophen 9-15 ity of (ULTRACET) 00:00: [place] 37.5-325 mg 00 Medical per tablet Branch tramadol-ac 0 Yes [facility] etaminophen 9-15 ity of (ULTRACET) 00:00: [place] 37.5-325 mg 00 Medical per tablet Branch tramadol-ac 0 Yes [facility] etaminophen 9-15 ity of (ULTRACET) 00:00: [place] 37.5-325 mg 00 Medical per tablet Branch tramadol-ac 0 Yes [facility] etaminophen 9-15 ity of (ULTRACET) 00:00: [place] 37.5-325 mg 00 Medical per tablet Branch tramadol-ac 0 Yes [facility] etaminophen 9-15 ity of (ULTRACET) 00:00: [place] 37.5-325 mg 00 Medical per tablet Branch tramadol-ac 0 Yes [facility] etaminophen 9-15 ity of (ULTRACET) 00:00: [place] 37.5-325 mg 00 Medical per tablet Branch tramadol-ac 0 Yes [facility] etaminophen 9-15 ity of (ULTRACET) 00:00: [place] 37.5-325 mg 00 Medical per tablet Branch tramadol-ac Yes [facility] etaminophen 9-15 ity of (ULTRACET) 00:00: [place] 37.5-325 mg 00 Medical per tablet Branch tramadol-ac Yes Un[facility] s etaminophen 9-15 ity of (ULTRACET) 00:00: [place] 37.5-325 mg 00 Medical per tablet Branch tramadol-ac Yes Un[facility] s etaminophen 9-15 ity of (ULTRACET) 00:00: [place] 37.5-325 mg 00 Medical per tablet Branch tramadol-ac Yes Un[facility] s etaminophen 9-15 ity of (ULTRACET) 00:00: [place] 37.5-325 mg 00 Medical per tablet Branch tramadol-ac Yes [facility] s etaminophen 9-15 ity of (ULTRACET) 00:00: [place] 37.5-325 mg 00 Medical per tablet Branch tramadol-ac Yes [facility] s etaminophen 9-15 ity of (ULTRACET) 00:00: [place] 37.5-325 mg 00 Medical per tablet Branch tramadol-ac Yes [facility] s etaminophen 9-15 ity of (ULTRACET) 00:00: [place] 37.5-325 mg 00 Medical per tablet Branch tramadol-ac Yes [facility] s etaminophen 9-15 ity of (ULTRACET) 00:00: [place] 37.5-325 mg 00 Medical per tablet Branch tramadol-ac Yes [facility] s etaminophen 9-15 ity of (ULTRACET) 00:00: [place] 37.5-325 mg 00 Medical per tablet Branch Vital Signs Vital Name Observation Time Observation Value Comments Source Systolic blood 2021-06-21 13:30:00 179 mm[Hg] Univer sity of pressure [facility] Diastolic blood 2021-06-21 13:30:00 114 mm[Hg] Unive rsity of pressure [facility] Heart rate 2021-06-21 13:30:00 60 /min [facility] Oxygen saturation in 2021-06-21 13:30:00 100 /min [facility] blood by [facility] Pulse oximetry Branch Body temperature 2021-06-21 13:00:00 36.72 Ny [facility] [place] [facility] Respiratory rate 2021-06-21 13:00:00 18 /min [facility] [place] [facility] Body height 2021-06-21 12:07:00 175.3 cm [facility] [place] [facility] Body weight 2021-06-21 12:07:00 74.8 kg [facility] [place] [facility] BMI 2021-06-21 12:07:00 24.34 kg/m2 [facility] [place] [facility] Systolic blood 2021-06-21 13:10:00 151 mm[Hg] Univer sity of pressure [place] [facility] Diastolic blood 2021-06-21 13:10:00 85 mm[Hg] Unive rsity of pressure [facility] Heart rate 2021-06-21 13:10:00 57 /min [facility] [place] [facility] Oxygen saturation in 2021-06-21 13:10:00 98 /min [facility] blood by [place] [employer] wilfred Pulse oximetry Branch Body temperature 2021-06-21 13:00:00 36.72 Ny [facility] [place] [facility] Respiratory rate 2021-06-21 13:00:00 18 /min [facility] Body height 2021-06-21 12:07:00 175.3 cm [facility] [place] [facility] Body weight 2021-06-21 12:07:00 74.8 kg [facility] [place] [facility] BMI 2021-06-21 12:07:00 24.34 kg/m2 [facility] Systolic blood 2021-06-07 14:39:00 114 mm[Hg] Univer sity of pressure [facility] Diastolic blood 2021-06-07 14:39:00 78 mm[Hg] Unive rsity of [facility] Heart rate 2021-06-07 14:39:00 67 /min [facility] [place] [facility] Respiratory rate 2021-06-07 14:39:00 18 /min [facility] [place] [facility] Oxygen saturation in 2021-06-07 14:39:00 95 /min [facility] Arterial blood by [place] [employer] wilfred Pulse oximetry Branch Body temperature 2021-06-07 14:18:00 36.44 Ny [facility] [place] [facility] Body height 2021-06-07 13:53:00 175.3 cm [facility] [place] [facility] Body weight 2021-06-07 13:53:00 75.297 kg [facility] [place] [facility] BMI 2021-06-07 13:53:00 24.51 kg/m2 [facility] [place] [facility] Systolic blood 2021-06-07 14:39:00 114 mm[Hg] Univer sity of pressure [facility] Diastolic blood 2021-06-07 14:39:00 78 mm[Hg] Unive rsity of pressure [facility] Heart rate 2021-06-07 14:39:00 67 /min [facility] [place] [facility] Respiratory rate 2021-06-07 14:39:00 18 /min [facility] [place] [facility] Oxygen saturation in 2021-06-07 14:39:00 95 /min [facility] Arterial blood by [employer] wilfred Pulse oximetry Branch Body temperature 2021-06-07 14:18:00 36.44 [place] [facility] [place] [facility] Body height 2021-06-07 13:53:00 175.3 cm [facility] Body weight 2021-06-07 13:53:00 75.297 kg [facility] [place] [facility] BMI 2021-06-07 13:53:00 24.51 kg/m2 [facility] [place] [facility] Systolic blood 2021-05-24 13:45:00 154 mm[Hg] Un[facility]ity of pressure [facility] Diastolic blood 2021-05-24 13:45:00 84 mm[Hg] Unive rsity of pressure [facility] Heart rate 2021-05-24 13:45:00 58 /min [facility] [place] [facility] Oxygen saturation in 2021-05-24 13:45:00 99 /min [facility] Arterial blood by [employer] wilfred Pulse oximetry Branch Respiratory rate 2021-05-24 13:40:00 18 /min [facility] [place] [facility] Body temperature 2021-05-24 13:00:00 36.56 [place] [facility] [place] [facility] Body weight 2021-05-21 15:19:00 77 kg [facility] [place] [facility] BMI 2021-05-21 15:19:00 25.06 kg/m2 [facility] [place] [facility] Heart rate 2021-05-24 13:10:00 59 /min [facility] [place] [facility] Respiratory rate 2021-05-24 13:10:00 20 /min [facility] Oxygen saturation in 2021-05-24 13:10:00 96 /min [facility] Arterial blood by [facility] Pulse oximetry Branch Systolic blood 2021-05-24 13:05:00 109 mm[Hg] Univer sity of pressure [facility] Diastolic blood 2021-05-24 13:05:00 73 mm[Hg] [facility] of pressure [facility] Body temperature 2021-05-24 13:00:00 36.56 Ny [facility] Body weight 2021-05-21 15:19:00 77 kg [facility] BMI 2021-05-21 15:19:00 25.06 kg/m2 [facility] Procedures Procedure Date / Time Performed Performing Clinician Sour e FL TIME OR 2021-06-21 14:14:54 Freddie Patel [facility] (NON-REPORTABLE) Medical Branch FL TIME OR 2021-06-21 14:14:54 Freddie Patel [facility] (NON-REPORTABLE) Medical Branch BLOCK EPIDURAL 2021-06-21 12:46:00 Freddie Patel [facility] Medical Branch POCT GLUCOSE(AGE 2021-06-21 12:02:00 Josiah [facility] >30DAYS) Medical Branch POCT GLUCOSE(AGE 2021-06-21 12:02:00 Josiah [facility] >30DAYS) Medical Branch DAY SURGERY - ADC 2021-06-21 05:01:00 Doctor Unassigned, No [facility] Name Medical Branch COVID-19 (ID NOW RAPID 2021-06-18 13:19:00 Dangelo Arzate [facility] TESTING) Medical Branch ASSIGNMENT OF BENEFITS 2021-06-18 12:52:45 Doctor Unassigned, No [facility] Medical Branch FL TIME OR 2021-06-07 14:34:45 Freddie Patel [facility] (NON-REPORTABLE) Medical Branch FL TIME OR 2021-06-07 14:34:45 Freddie Patel [facility] (NON-REPORTABLE) Medical Branch POCT GLUCOSE 2021-06-07 14:01:00 Freddie Patel [facility] (AUTOMATED) Medical Branch POCT GLUCOSE 2021-06-07 14:01:00 [facility] BLOCK EPIDURAL 2021-06-07 14:01:00 [facility] DAY SURGERY - ADC 2021-06-07 05:01:00 Doctor Unassigned, No Univ ersity of [facility] Medical Branch ASSIGNMENT OF BENEFITS 2021-06-04 16:02:17 Doctor Unassigned, No University [facility] Medical Branch FL TIME OR 2021-05-24 13:29:02 [facility] Medical Branch FL TIME OR 2021-05-24 13:29:02 [facility] Branch BLOCK EPIDURAL 2021-05-24 12:39:00 Freddie Patel [facility] Medical Branch POCT GLUCOSE 2021-05-24 12:25:00 Amanda [facility] (AUTOMATED) Medical Branch POCT GLUCOSE 2021-05-24 12:25:00 [facility] DAY SURGERY - ADC 2021-05-24 05:01:00 Doctor Unassigned, No Univ ersity of [facility] Medical Branch EXTERNAL PROVIDER 2021-05-20 05:01:00 Doctor Unassigned, No Univ ersity of [facility] Medical Branch EXTERNAL PROVIDER 2021-05-20 05:01:00 Doctor Unassigned, No Univ ersity of [facility] Medical Branch PHYSICIAN ORDERS 2021-05-19 05:01:00 Doctor Unassigned, No Unive rsity of [facility] Medical Branch CBC WITH DIFF 2020-10-14 17:44:00 Freddie Patel [facility] Medical Branch Encounters Start End Encounter Admission Attending Care Care Encounter Source Date/Time Date/Time Type Type Clinicians Facility Department ID 2021-07-26 Outpatient R AMANDA RUST ANS [id number] Univers 18:24:05 FREDDIE ity [facility] 2021-07-26 [facility] [id number] Univers 18:24:00 FREDDIE ity [facility] 2021-07-26 [facility] [id number] Univers 18:23:55 FREDDIE ity [facility] 2021-07-24 Outpatient Jony [facility] KYRA [id number] Univers 18:04:48 FREDDIE ity [facility] 2021-06-21 2021-06-21 [facility] 1.2.840.114 [id number] Univers 06:40:00 08:37:00 Encounter Freddie Linares [place] 350.1.13.10 [place] [phone] [facility] 071 [place] 2021-06-21 2021-06-21 Surgery [facility] [id number] Univers 07:50:00 08:10:00 Freddie [place]inton 350.1.13.10 [place] [id number] [facility] 020 Branch 2021-06-21 2021-06-21 Orders Doctor MASON 1.2.840.114 [id number] Univers 00:00:00 00:00:00 Only Unassigned, IVÁN 350.1.13.10 ity of [place] [facility] 4.2.7.2.686 [place] [phone] [place] [address] Branch 2021-06-18 2021-06-18 Outpatient [facility] [id number] Univers 09:30:00 09:30:00 [id number] ity of [facility] 2021-06-18 2021-06-18 [facility] [id number] Univers 09:30:00 09:30:00 FREDDIE ity [facility] 2021-06-18 2021-06-18 Laboratory Only, Adc Test RUST 1.2.840. 114 [id number] Univers 07:54:18 08:09:18 Only Freddie Patel 350.1.13.1 0 [place] [phone] [facility] 353 Branch 2021-06-18 2021-06-18 Orders Doctor MASON 1.2.840.114 [id number] Univers 00:00:00 00:00:00 Only Unassigned, IVÁN 350.1.13.10 ity of [place] [facility] 4.2.7.2.686 [place] as [id number] [facility] 009 Branch 2021-06-07 2021-06-07 Surgery [facility] [id number] Univers 09:57:00 10:17:00 Freddie [place] 350.1.13.10 [place] [id number] [facility] 020 Branch 2021-06-07 2021-06-07 [facility] 1.2.840.114 [id number] Univers 08:31:00 09:56:00 Encounter Freddie Calhoun 350.1.13.10 [place] [id number] [facility] 071 Branch 2021-06-07 2021-06-07 Orders Doctor MASON 1.2.840.114 [id number] Univers 00:00:00 00:00:00 Only Unassigned, IVÁN 350.1.13.10 ity of [place] [facility] 4.2.7.2.686 [place] [id number] [facility] 009 Branch 2021-06-04 2021-06-04 Laboratory Only, Adc Test RUST 1.2.840. 114 [id number] Univers 11:01:55 11:16:55 Only Freddie Patel 350.1.13.1 0 [place] [id number] [facility] 353 Branch 2021-06-04 2021-06-04 Outpatient R [facility] [id number] Univers 10:45:00 10:45:00 [id number] ity of [facility] 2021-06-04 2021-06-04 Outpatient R AMANDA [facility] [id number] Univers 10:45:00 10:45:00 FREDDIE ity of [facility] 2021-06-04 2021-06-04 Orders Doctor MASON 1.2.840.114 [id number] Univers 00:00:00 00:00:00 Only Unassigned, IVÁN 350.1.13.10 [facility] 4.2.7.2.686 [place] [id number] [facility] 009 Branch 2021-05-24 2021-05-24 Hospital Amanda, [facility] 1.2.840.114 [id number] Univers 07:17:00 08:50:00 Encounter Freddie Linares Lj 350.1.13.10 [place] [id number] [facility] 071 Branch 2021-05-24 2021-05-24 [facility] [id number] Univers 07:50:00 08:10:00 Freddie Linares [place] 350.1.13.10 [place] [id number] [facility] 020 Branch 2021-05-24 2021-05-24 Orders Doctor MASON 1.2.840.114 [id number] Univers 00:00:00 00:00:00 Only Unassigned, IVÁN 350.1.13.10 [facility] 4.2.7.2.686 [place] [id number] [facility] 009 Branch 2021-05-21 2021-05-21 Laboratory Only, Adc Test RUST 1.2.840. 114 [id number] Univers 11:54:52 12:09:52 Only Freddie Patel 350.1.13.1 0 [place] [id number] [facility] 353 Branch 2021-05-21 2021-05-21 Outpatient R [facility] [id number] Univers 12:00:00 12:00:00 [id number] ity [facility] 2021-05-21 2021-05-21 Outpatient R AMANDA [facility] [id number] Univers 12:00:00 12:00:00 FREDDIE ity [facility] 2021-05-20 2021-05-20 Custom Frame Assembler Gumaro Quinonez Lab Main RUST 1.2.8 40.114 [id number] Univers 10:00:11 10:15:11 Visit Freddie Patel 350.1.13.1 0 [place] [id number] Va dical [address] 2021-05-20 2021-05-20 Outpatient R [facility] [id number] Univers 10:00:00 10:00:00 [id number] ity [facility] 2021-05-20 2021-05-20 Outpatient R [facility] [id number] Univers 10:00:00 10:00:00 ity [facility] 2021-05-19 2021-05-19 Orders Doctor MASON 1.2.840.114 [id number] Univers 00:00:00 00:00:00 Only Unassigned, IVÁN 350.1.13.10 ity of [place] [facility] 4.2.7.2.686 [place] [id number] [address] 2020-10-16 2020-10-16 Outpatient R AMANDA [facility] [id number] Univers 11:15:00 11:15:00 FREDDIE ity [facility] 2020-10-16 2020-10-16 Outpatient R [facility] [id number] Univers 11:15:00 11:15:00 [id number] ity [facility] 2020-10-14 2020-10-14 Custom Frame Assembler Cristiano, Adc Lab Main [facility] 1.2.8 40.114 [id number] Univers 11:37:54 11:52:54 Visit Freddie Patel [place] 350.1.13.1 0 [place] [id number] [place] [address] Branch [facility] 2020-10-14 2020-10-14 Outpatient R [facility] [id number] Univers 11:45:00 11:45:00 [id number] [facility] 2020-10-14 2020-10-14 Outpatient R AMANDA, [facility] [id number] Univers 11:45:00 11:45:00 FREDDIE [facility] Results Test Description Test Time Test Comments Results Result Comments Source POCT Glucose 2021-06-21 12:02:00 Test Item Value Reference Range Interpretation Comme nts POCT Glu (age>30days) (test code = 3342) 92 mg/dL 70-110 [facility] [id number] 12:02:00 Test Item Value Reference Range Interpretation Comments POCT Glu (age>30days) (test code = 92 mg/dL 70-110 3342) [facility] GLUCOSE (AUTOMATED)2021-06-07 14:04:22 Test Item Value Reference Range Interpretation Comments POCT GLU (test code = 7820788175) 114 mg/dL 70-110 H Lab Interpretation (test code = Abnormal 64491-2) [facility] GLUCOSE (AUTOMATED)2021-06-07 14:04:22 Test Item Value Reference Range Interpretation Comments POCT GLU (test code = 7990744893) 114 mg/dL 70-110 H Lab Interpretation (test code = Abnormal 15264-9) [facility] GLUCOSE (AUTOMATED)2021-06-07 14:04:22 Test Item Value Reference Range Interpretation Comments POCT GLU (test code = 4449208942) 114 mg/dL 70-110 H Lab Interpretation (test code = Abnormal 35341-3) [facility] GLUCOSE (AUTOMATED)2021-06-07 14:04:22 Test Item Value Reference Range Interpretation Comments POCT GLU (test code = 0634139565) 114 mg/dL 70-110 H Lab Interpretation (test code = Abnormal 43124-2) [facility] TIME OR (NON-REPORTABLE)2021-05-24 13:29:46 These images do not require a Radiology diagnostic report.[facility] TIME OR (NON-REPORTABLE)2021-05-24 13:29:46These images do not require a Radiology diagnostic report.[facility] TIME OR (NON-REPORTABLE)2021-05-24 13:29:46These images do not require a Radiology diagnostic report.[facility] TIME OR (NON-REPORTABLE) 2021-05-24 13:29:46These images do not require a Radiology diagnostic report. [facility] GLUCOSE (AUTOMATED)2021-05-24 12:34:55 Test Item Value Reference Range Interpretation Comments POCT GLU (test code = 0938525454) 112 mg/dL 70-110 H Lab Interpretation (test code = Abnormal 57926-0) [facility] GLUCOSE (AUTOMATED)2021-05-24 12:34:55 Test Item Value Reference Range Interpretation Comments POCT GLU (test code = 6597764573) 112 mg/dL 70-110 H Lab Interpretation (test code = Abnormal 79921-2) [facility] GLUCOSE (AUTOMATED)2021-05-24 12:34:55 Test Item Value Reference Range Interpretation Comments POCT GLU (test code = 1529670597) 112 mg/dL 70-110 H Lab Interpretation (test code = Abnormal 94882-4) [facility] GLUCOSE (AUTOMATED)2021-05-24 12:34:55 Test Item Value Reference Range Interpretation Comments POCT GLU (test code = 1582160754) 112 mg/dL 70-110 H Lab Interpretation (test code = Abnormal 80426-9) [facility] WITH [id number] 18:00:00 Test Item Value Reference Range Interpretation Comments WBC (test code = See_Comment [Automated 6690-2) message] The sy stem which generated this result transmitted reference range : 4.20 - 10.70 10*3/?L. The reference range was not used to interpret this result as normal/abnormal . RBC (test code = See_Comment [Automated 789-8) message] The sy stem which generated this result transmitted reference range : 4.26 - 5.52 10*6/?L. The reference range was not used to interpret this result as normal/abnormal . HGB (test code = 16.0 g/dL 12.2-16.4 718-7) HCT (test code = 47.6 % 38.4-49.3 4544-3) MCV (test code = 89.0 fL 81.7-95.6 787-2) MCH (test code = 29.9 pg 26.1-32.7 785-6) MCHC (test code = 33.6 g/dL 31.2-35 786-4) RDW-SD (test code = 40.5 fL 38.5-51.6 87403-0) RDW-CV (test code = 12.3 % 12.1-15.4 788-0) PLT (test code = See_Comment [Automated 777-3) message] The sy stem which generated this result transmitted reference range : 150 - 328 10*3/ ?L. The reference r margaret was not used to interpret this result as normal/abnormal . MPV (test code = 12.0 fL 9.8-13 15793-4) NRBC/100 WBC (test See_Comment [Automat ed code = 6347598896) message] The system which generated this result transmitted reference range : 0.0 - 10.0 /100 WBCs. The refer ence range was not u sed to interpret th is result as normal/abnormal . NRBC x10^3 (test code <0.01 See_Comment [Auto mated = 3167699890) message] The s ystem which generated this result transmitted reference range : 10*3/?L. The reference range was not used to interpret this result as normal/abnormal . GRAN MAT (NEUT) % 48.6 % (test code = 770-8) IMM GRAN % (test code 0.40 % = 2149017568) LYMPH % (test code = 35.7 % 736-9) MONO % (test code = 6.5 % 5905-5) EOS % (test code = 8.2 % 713-8) BASO % (test code = 0.6 % 706-2) GRAN MAT x10^3(ANC) 4.59 10*3/uL 1.99-6.95 (test code = 9949602698) IMM GRAN x10^3 (test 0.04 10*3/uL 0-0.06 code = 4271560358) LYMPH x10^3 (test code 3.37 10*3/uL 1.09-3.23 H = 731-0) MONO x10^3 (test code 0.61 10*3/uL 0.36-1.02 = 742-7) EOS x10^3 (test code = 0.77 10*3/uL 0.06-0.53 H 711-2) BASO x10^3 (test code 0.06 10*3/uL 0.01-0.09 = 704-7) Lab Interpretation Abnormal (test code = 76223-7) [facility]
--- NOTE | 2022-01-01 10:54 | RAD REPORT ---
EXAM DESCRIPTION: RAD - Hand Right 3 View - 01/01/2022 10:19 am CLINICAL HISTORY: Right hand pain FINDINGS: Old fracture fifth metacarpal. No acute fracture or dislocation seen. Bones appear osteoporotic. Chondrocalcinosis Bony density adjacent to fifth carpometacarpal joint likely chronic. 6 millimeter round lucency within the third proximal phalanx likely benign. Follow-up x-ray in 3 ari hs recommended to assess stability
--- NOTE | 2022-01-01 11:02 | ER ---
Nurse's Notes [facility] Name: Odilon Pittman Jr Age: 71 yrs Sex: Male : 1950 Arrival Date: 01/01/2022 Time: 09:56 Bed 14 Private MD: Sanchez Price Diagnosis: Sprain of other part of right wrist and hand Presentation: 01/01 10:06 Chief complaint: Patient states: PT STATED FELL OFF 4 FT FROM LADDER YESTERDAY aa5 AFTERNOON LANDED ON RIGHT HAND BENT FINGERS BACK, NO LOC. Coronavirus screen: Vaccine status: Patient reports receiving the 2nd dose of the covid vaccine. Ebola Screen: No symptoms or risks identified at this time. Initial Sepsis Screen: Does the patient meet any 2 criteria? No. Patient's initial sepsis screen is negative. 10:06 Method Of Arrival: Ambulatory [facility] 10:27 Care prior to arrival: None. Mechanism of Injury: Fall from ladder approximately [address] 10:27 Initial Sepsis Screen: Does the patient have a suspected source of infection? No. [facility] Patient's initial sepsis screen is negative. Risk Assessment: Do you want to hurt yourself or someone else? Patient reports no desire to harm self or others. Onset of symptoms was December 31, 2021. 10:27 Acuity: JAVAN [address] [facility] Triage Assessment: 10:11 Pain: Complains of pain in right hand. Injury Description: PT FELL ON LEFT HAND. 5 Historical: - Allergies: 10:09 PENICILLINS; aa5 - Home Meds: 10:09 Lisinopril Oral [Active]; pravastatin oral [Active]; Levemir U-100 Insulin 100 unit/mL aa5 subcutaneous soln [Active]; Farxiga oral [Active]; - PMHx: 10:09 Diabetes mellitus; Hypercholesterolemia; Hypertensive disorder; aa5 - Immunization history:: Client reports receiving the 2nd dose of the Covid vaccine. - Social history:: Smoking status: Patient denies any tobacco usage or history of. Patient/guardian denies using alcohol, street drugs, IV drugs, caffeine, over the counter diet medications, tobacco products. - Family history:: not pertinent. Screenin:26 Abuse screen: Denies threats or abuse. Nutritional screening: No deficits noted. [facility] Tuberculosis screening: No symptoms or risk factors identified. Fall Risk None identified. Assessment: 10:24 General: Appears in no apparent distress. Behavior is calm, cooperative. Pain: jh6 Complains of pain in dorsum of right hand Pain currently is 6 out of 10 on a pain scale. Quality of pain is described as throbbing, Pain began 1 day ago. Is continuous, Aggravated by increased activity. Musculoskeletal: Circulation, motion, and sensation intact. Capillary refill < 3 seconds, Range of motion: Swelling present in right hand. 11:20 Reassessment: No changes from previously documented assessment. pt reports ice that was jh6 given and placed on hand helped a little. instructions given for cool packs and decreased use over the next week understood by pt and spouse. 11:20 Pain: Complains of pain in right hand Pain currently is 3 out of 10 on a pain scale. jh6 11:35 Reassessment: kody wrap applied to rt hand without increased pain. jh6 Vital Signs: 10:06 BP 147 / 76; Pulse 87; Resp 16; Temp 98.4; Pulse Ox 100% on R/A; Weight 65.77 kg; aa5 Height 5 ft. 4 in. (162.56 cm); Pain 6/10; 10:12 BP 147 / 76; Pulse 87; Resp 16; Temp 98.4; Pulse Ox 100% on R/A; Pain 6/10; aa5 11:20 BP 132 / 74; Pulse 80; Resp 17; Pulse Ox 97% ; jh6 10:06 Body Mass Index 24.89 (65.77 kg, 162.56 cm) aa5 ED Course: 09:56 Patient arrived in ED. mr 09:57 Sanchez Price is Private Physician. mr 09:58 [facility]C [facility] kb 09:58 Meet Vinson MD is Attending Physician. kb 10:10 X-ray(s) taken. jh6 10:17 Sonya Zaragoza, RN is Primary Nurse. jh6 10:20 Hand Right 3 View XRAY In Process Unspecified. EDMS 10:26 Call light in reach. Adult w/ patient. jh6 10:27 Triage completed. jh6 Administered Medications: No medications were administered Outcome: 11:01 Discharge ordered by . kb 11:36 Discharged to home ambulatory. jh6 11:36 Condition: good 11:36 Discharge instructions given to patient, Instructed on discharge instructions, Demonstrated understanding of instructions, wound care. 11:37 Patient left the ED. jh6 Signatures: Dispatcher [employer] EDDolores Shrestha, EMIGDIO CHOWDHURYP-Angella Genie Karimi, Linh, RN RN aa5 Sonya Zaragoza RN RN jh6 Corrections: (The following items were deleted from the chart) 10: 10:09 Allergies: No Known Allergies; aa5 aa5 10: 10:09 Allergies: Aspirin; aa5 aa5 10: 10:09 Allergies: Ibuprofen; aa5 aa5 : 10:09 Allergies: Morphine; aa5 aa5 10: 10:09 Allergies: Codeine; aa5 aa5 10: 10:09 Allergies: Latex, Natural Rubber; aa5 aa5 10: 10:09 Allergies: Sulfa (Sulfonamide Antibiotics); aa5 aa5 10:33 10:06 Chief complaint: Patient states: PT STATED FELL OFF 12FT LADDER YESTERDAY aa5 AFTERNOON LANDED ON RIGHT HAND BENT FINGERS BACK, NO LOC aa5
--- NOTE | 2022-01-01 11:02 | EDPHYS ---
Physician Documentation [facility] Name: Odilon Pittman Jr Age: 71 yrs Sex: Male : 1950 Arrival Date: 01/01/2022 Time: 09:56 Bed 14 Private MD: Sanchez Price ED Physician Meet Vinson HPI: 01/01 10:22 This 71 yrs old Male presents to ER via Ambulatory with complaints of Fall kb Injury, Hand Injury. 10:22 Details of fall: The patient fell from a height, from a ladder, approximately 12 feet. kb Onset: The symptoms/episode began/occurred yesterday. Associated injuries: The patient sustained right hand. Severity of symptoms: At their worst the symptoms were moderate, in the emergency department the symptoms are unchanged. The patient has not experienced similar symptoms in the past. The patient has not recently seen a physician. Pt states he fell off of a 12 foot ladder yesterday and injured his right hand. States he just came in to see if it was broken. Denies any other injuries and doesn't want anything else checked. States he was cutting a limb that hit the ladder when it fell and knocked him over. . Historical: - Allergies: 10:09 PENICILLINS; aa5 - Home Meds: 10:09 Lisinopril Oral [Active]; pravastatin oral [Active]; Levemir U-100 Insulin 100 unit/mL aa5 subcutaneous soln [Active]; Farxiga oral [Active]; - PMHx: 10:09 Diabetes mellitus; Hypercholesterolemia; Hypertensive disorder; aa5 - Immunization history:: Client reports receiving the 2nd dose of the Covid vaccine. - Social history:: Smoking status: Patient denies any tobacco usage or history of. Patient/guardian denies using alcohol, street drugs, IV drugs, caffeine, over the counter diet medications, tobacco products. - Family history:: not pertinent. ROS: 10:21 Constitutional: Negative for fever, chills, and weight loss. kb 10:21 MS/extremity: Positive for injury or acute deformity, decreased range of motion, pain, swelling, tenderness, of the right hand. 10:21 All other systems are negative. Exam: 10:21 Constitutional: This is a well developed, well nourished patient who is awake, alert, kb and in no acute distress. Head/Face: Normocephalic, atraumatic. ENT: Moist Mucous membranes Respiratory: Respirations even and unlabored. No increased work of breathing. Talking in full sentences Skin: Warm, dry with normal turgor. Normal color. Neuro: Awake and alert, GCS 15, oriented to person, place, time, and situation. Moves all extremities. Normal gait. Psych: Awake, alert, with orientation to person, place and time. Behavior, mood, and affect are within normal limits. 10:21 Musculoskeletal/extremity: Extremities: grossly normal except: noted in the right hand: decreased ROM, pain, swelling, tenderness, ROM: limited active range of motion due to pain, in the right hand, Circulation is intact in all extremities. Sensation intact. Vital Signs: 10:06 BP 147 / 76; Pulse 87; Resp 16; Temp 98.4; Pulse Ox 100% on R/A; Weight 65.77 kg; aa5 Height 5 ft. 4 in. (162.56 cm); Pain 6/10; 10:12 BP 147 / 76; Pulse 87; Resp 16; Temp 98.4; Pulse Ox 100% on R/A; Pain 6/10; aa5 11:20 BP 132 / 74; Pulse 80; Resp 17; Pulse Ox 97% ; jh6 10:06 Body Mass Index 24.89 (65.77 kg, 162.56 cm) aa5 MDM: 09:58 Patient medically screened. 10:22 Data reviewed: vital signs, nurses notes. Data interpreted: Pulse oximetry: on room air kb is 100 %. Interpretation: normal. 11:01 Counseling: I had a detailed discussion with the patient and/or guardian regarding: the kb historical points, exam findings, and any diagnostic results supporting the discharge/admit diagnosis, radiology results, the need for outpatient follow up, a orthopedic surgeon, to return to the emergency department if symptoms worsen or persist or if there are any questions or concerns that arise at home. 01/01 10:05 Order name: Hand Right 3 View XRAY; Complete Time: 11:01 kb Administered Medications: No medications were administered Disposition Summary: 01/01/22 11:01 Discharge Ordered Location: Home kb Condition: Stable kb Diagnosis - Sprain of other part of right wrist and hand kb Followup: kb - With: Emergency Department - When: As needed - Reason: Worsening of condition Followup: kb - With: Private Physician - When: 2 - 3 days - Reason: Recheck today's complaints, Continuance of care, Re-evaluation by your physician Discharge Instructions: - Discharge Summary Sheet kb - Hand Pain kb Forms: - Medication Reconciliation Form kb - Thank You Letter kb - Antibiotic Education kb - Prescription Opioid Use kb Addendum: 01/06/2022 18:56 Co-signature as Attending Physician, Meet Vinson MD I agree with the assessment and c dangelo plan of care. Signatures: Dispatcher [employer] EDDolores Shrestha, CABLE WAY OPERATOR-C CABLE WAY OPERATOR-Ckb Meet Vinson MD MD cha Calderon, Audri, RN RN aa5 Corrections: (The following items were deleted from the chart) 01/01 10: 10:09 Allergies: No Known Allergies; aa5 aa5 : 10:09 Allergies: Aspirin; aa5 aa5 : 10:09 Allergies: Ibuprofen; aa5 aa5 : 10:09 Allergies: Morphine; aa5 aa5 : 10:09 Allergies: Codeine; aa5 aa5 10: 10:09 Allergies: Latex, Natural Rubber; aa5 aa5 10:11 10:09 Allergies: Sulfa (Sulfonamide Antibiotics); aa5 aa5
[2022-01-01 13:47] VITALS: TEMP 98.4
[2022-01-01 13:50] VITALS: BP 132/74; O2SAT 97
== END 2022-01-01 11:37 | disposition home or self-care (01) ==
LOC: ER 09:53
DX: S63.501A Unspecified sprain of right wrist, initial encounter (principal); W11.XXXA Fall on and from ladder, initial encounter; Y93.9 Activity, unspecified; Y92.9 Unspecified place or not applicable; Z88.0 Allergy status to penicillin; E11.9 Type 2 diabetes mellitus without complications; E78.00 Pure hypercholesterolemia, unspecified; I10 Essential (primary) hypertension
CPT/HCPCS: 99283